=== PATIENT | male | born 1995 | race Caucasian/White ===

== ENCOUNTER 2018-10-27 10:04 | Emergency (ER) | payer OTHER ==
[2018-10-27] MEDS ORDERED: Ondansetron INJ* 2 MG/ML VIAL IV ONE (10:19)
[2018-10-27] MEDS ORDERED: NS 0.9% 1000 ML* 1,000 ML IV ONE (10:19)
--- NOTE | 2018-10-27 10:20 | ED ---
Abdominal Pain/Male - HPI Summary HPI Summary: Pt. is a 23-year-old male who presents emergency department for vomiting and diarrhea. Patient notes he started with vomiting yesterday and then diarrhea today. He notes generalized abdominal cramping yesterday that has improved today. Denies fever, chills, upper respiratory symptoms, cough. Patient notes that he ate raw fish on Saturday. Denies sick contacts, recent travels, recent hospitalization, recent antibiotic use. He has no past medical history. Symptoms are moderate in severity. No current modifying factors. - History of Current Complaint Chief Complaint: EDNauseaVomitDiarrh Stated Complaint: VOMITING Time Seen by Provider: 10/27/18 10:17 Hx Obtained From: Patient Pain Intensity: 4 - Allergies/Home Medications Allergies/Adverse Reactions: Allergies Allergy/AdvReac Type Severity Reaction Status Date / Time No Known Allergies Allergy Verified 10/27/18 10:16 PMH/Surg Hx/FS Hx/Imm Hx Previously Healthy: Yes Infectious Disease History: No Infectious Disease History: Denies: Traveled Outside the [place] in Last 30 Days - Family History Known Family History: Positive: Non-Contributory - Social History Occupation: Student Lives: With Family Review of Systems Constitutional: Negative Negative: Fever, Chills Eyes: Negative ENT: Negative Cardiovascular: Negative Respiratory: Negative Positive: Abdominal Pain, Vomiting, Diarrhea, Nausea Genitourinary: Negative Musculoskeletal: Negative Skin: Negative Neurological: Negative All Other Systems Reviewed And Are Negative: Yes Physical Exam Triage Information Reviewed: Yes Vital Signs On Initial Exam: Initial Vitals Temp Pulse Resp BP Pulse Ox 98.5 F 108 18 121/97 99 10/27/18 10:14 10/27/18 10:14 10/27/18 10:14 10/27/18 10:14 10/27/18 10:14 Vital Signs Reviewed: Yes Appearance: Positive: Well-Appearing - Pt. lying in bed, appears tired but nontoxic. Skin: Positive: Warm, Dry Head/Face: Positive: Normal Head/Face Inspection Eyes: Positive: Normal, EOMI Neck: Positive: Supple Respiratory/Lung Sounds: Positive: Clear to Auscultation, Breath Sounds Present Cardiovascular: Positive: Normal, RRR Abdomen Description: Positive: Nontender, Soft Neurological: Positive: Normal, CN Intact II-III Psychiatric: Positive: Affect/Mood Appropriate Diagnostics - Vital Signs Vital Signs Temp Pulse Resp BP Pulse Ox 10/27/18 10:14 98.5 F 108 18 121/97 99 - Laboratory Result Diagrams: 10/27/18 10:42 10/27/18 10:42 Lab Statement: Any lab studies that have been ordered have been reviewed, and results considered in the medical decision making process. Abdominal Pain Fem Course/Dx - Course Course Of Treatment: Patient presenting with vomiting and diarrhea. He is afebrile stable vital signs. He has benign abdominal exam. Suspect viral in nature. We'll obtain basic blood work and check electrolytes, give IV fluids, Zofran and by mouth challenge. Labs are unremarkable other than mildly elevated glucose of 125. On re-exam pt. s feeling better and tolerating water without N/V. Suspect viral in nature. Will dc home with zofran rx. Clear liquid diet x 24 hours. To increase fluids. To f.u in [facility] if needed and return to ER if sxs change or worsen. Pt. understands and agrees with plan. - Diagnoses Differential Diagnosis/HQI/PQRI: Appendicitis, Bowel Obstruction, Constipation, Diverticulitis, Hepatitis Provider Diagnoses: Viral gastroenteritis Discharge - Sign-Out/Discharge Documenting (check all that apply): Patient Departure - Discharge Plan Condition: Improved Disposition: HOME Prescriptions: Ondansetron TAB* [Zofran 4 MG Tab*] 4 mg PO Q6H PRN #12 tab PRN Reason: Nausea Patient Education Materials: Gastroenteritis (ED) Referrals: [facility] [Outside] Additional Instructions: Schedule a follow up appointment with [facility] Clear liquid diet x 24 hours Zofran as needed for nausea Return to ER if symptoms change or worsen - Billing Disposition and Condition Condition: IMPROVED Disposition: Home
[2018-10-27 10:55] LABS: ABS Basophils 0.1 10^3/ul (0-0.2); ABS Eosinophils 0 10^3/ul (0-0.6); ABS Lymphocytes 0.7 10^3/ul (1.0-4.8); ABS Monocytes 0.7 10^3/ul (0-0.8); ABS Nucleated RBC 0 10^3/ul; Eosinophil % 0.1 %; Hematocrit 43 % (42-52); Hemoglobin 14.9 g/dl (14.0-18.0); Lymphocyte % 7.8 %; Mean Corpuscular HGB Conc 35 g/dl (31-36); Mean Corpuscular Hemoglobin 30 pg (27-31); Mean Corpuscular Volume 86 fL (80-94); Mean Platelet Volume 6.9 fL (7.4-10.4); Nucleated Red Blood Cells % 0.1; Platelet Count 238 10^3/ul (150-450); Red Blood Count 4.95 10^6/ul (4.00-5.40); Red Cell Distribution Width 12 % (10.5-15); White Blood Count 9.5 10^3/ul (3.5-10.8)
[2018-10-27 11:32] LABS: EGFR Non-African American 114.8 (>60)
[2018-10-27 12:13] VITALS: BP 117/64
== END 2018-10-27 12:12 | disposition home or self-care (01) ==
LOC: ED 10:04
DX: A08.4 Viral intestinal infection, unspecified (principal)
CPT/HCPCS: 36415; 80053; 83735; 85025; 96374; 99283; J2405